=== PATIENT | female | born 1950 | race Caucasian/White ===

== ENCOUNTER → 2017-07-17 | Outpatient (CLI) | payer MEDICARE ==
--- NOTE | 2017-07-19 09:48 | MM ---
Reason for exam: screening (asymptomatic). Last mammogram was performed 1 year and 10 months ago. History: Patient is postmenopausal and is nulliparous. Family history of breast cancer in mother at age 89. Physical Findings: A clinical breast exam by your physician is recommended on an annual basis and results should be correlated with mammographic findings. MG Screening Mammo w CAD Bilateral CC and MLO view(s) were taken. Prior study comparison: September 29, 2015, bilateral MG screening mammo w CAD. September 02, 2014, bilateral MG screening mammo w CAD. The breast tissue is heterogeneously dense. This may lower the sensitivity of mammography. No significant changes when compared with prior studies. ASSESSMENT: Negative, BI-RAD 1 RECOMMENDATION: Routine screening mammogram of both breasts in 1 year.
== END | disposition home or self-care (01) ==
LOC: RADMAMWWP 09:38
PROVIDERS: ATTEND Family Medicine
DX: Z12.31 Encounter for screening mammogram for malignant neoplasm of breast (principal)

== ENCOUNTER → 2018-11-19 | Outpatient (CLI) | payer MEDICARE ==
--- NOTE | 2018-11-19 13:04 | MM ---
Reason for exam: screening (asymptomatic). Last mammogram was performed 1 year and 4 months ago. History: Patient is postmenopausal and is nulliparous. Family history of breast cancer in mother at age 89. Physical Findings: A clinical breast exam by your physician is recommended on an annual basis and results should be correlated with mammographic findings. MG Screening Mammo w CAD Bilateral CC and MLO view(s) were taken. Prior study comparison: July 17, 2017, bilateral MG screening mammo w CAD. September 29, 2015, bilateral MG screening mammo w CAD. The breast tissue is heterogeneously dense. This may lower the sensitivity of mammography. Stable benign calcifications. There is no discrete abnormality. No significant changes when compared with prior studies. ASSESSMENT: Benign, BI-RAD 2 RECOMMENDATION: Routine screening mammogram of both breasts in 1 year.
== END | disposition home or self-care (01) ==
LOC: RADMAMWWP 08:10
PROVIDERS: ATTEND Family Medicine
DX: Z12.31 Encounter for screening mammogram for malignant neoplasm of breast (principal)
CPT/HCPCS: 77067

== ENCOUNTER → 2022-02-08 | Outpatient (CLI) | payer MEDICARE ==
--- NOTE | 2022-02-09 08:48 | MM ---
Reason for Exam: Screening (asymptomatic). Last mammogram was performed 3 year(s) and 2 month(s) ago. Patient History: Menarche at age 14. Patient has no children. Postmenopausal. Mother had breast cancer, age 89. Risk Values: Shannan 5 year model risk: 3.4%. NCI Lifetime model risk: 9.7%. Film Views: Bilateral CC views were taken. Bilateral MLO views were taken. Prior Study Comparison: 09/29/2015 Bilateral Screening Mammogram, [facility]. 07/17/2017 Bilateral Screening Mammogram, [facility]. 11/19/2018 Bilateral Screening Mammogram, [facility]. Tissue Density: The breast tissue is heterogeneously dense. This may lower the sensitivity of mammography. Findings: Analyzed By CAD. Benign-appearing calcifications are noted. No dominant mass or architectural distortion. Question of faint grouped calcifications in the outer margin of the left breast. Recommend magnification views. Overall Assessment: Incomplete: need additional imaging evaluation, BI-RAD 0 Management: Special View Mammogram of both breasts. If lesion persists on supplemental views, image directed ultrasound is recommended. [facility] will attempt to contact patient to return for supplemental views and ultrasound if indicated. Left . A clinical breast exam by your physician is recommended on an annual basis and results should be correlated with mammographic findings. Electronically signed and approved by: Chavez Flores M.D. Radiologis
== END | disposition home or self-care (01) ==
LOC: RADMAMWWP 09:33
PROVIDERS: ATTEND Family Medicine
DX: Z12.31 Encounter for screening mammogram for malignant neoplasm of breast (principal); Z78.0 Asymptomatic menopausal state; Z80.3 Family history of malignant neoplasm of breast
CPT/HCPCS: 77067

== ENCOUNTER → 2022-02-11 | Outpatient (CLI) | payer MEDICARE ==
--- NOTE | 2022-02-11 14:09 | MM ---
Reason for Exam: Additional evaluation requested from abnormal screening. Last screening mammogram was performed less than 1 month ago. Patient History: Menarche at age 14. Patient has no children. Postmenopausal. Mother had breast cancer, age 89. Risk Values: Shannan 5 year model risk: 3.4%. NCI Lifetime model risk: 9.7%. Prior Study Comparison: 07/17/2017 Bilateral Screening Mammogram, [facility]. 11/19/2018 Bilateral Screening Mammogram, [facility]. 02/08/2022 Bilateral MG screening mammo w CAD, [facility]. Tissue Density: Left: The breast tissue is extremely dense which could obscure a lesion on mammography. Findings: Analyzed By CAD. No persistent density on compression views is evident. There are some faint calcifications within the left cranial caudal view not identified on the medial lateral views. This may be an interval change. Overall Assessment: Suspicious, BI-RAD 4 Management: Stereotactic Core Biopsy of the left breast. A clinical breast exam by your physician is recommended on an annual basis and results should be correlated with mammographic findings. This exam should not preclude additional follow-up of suspicious palpable abnormalities. Results were given to the patient verbally at the time of exam. Electronically signed and approved by: Yogesh Villegas D.O. Radiologis
== END | disposition home or self-care (01) ==
LOC: RADMAMWWP 13:30
PROVIDERS: ATTEND Family Medicine
DX: R92.1 Mammographic calcification found on diagnostic imaging of breast (principal); Z78.0 Asymptomatic menopausal state; Z80.3 Family history of malignant neoplasm of breast
CPT/HCPCS: 77065; G0279; 77061

== ENCOUNTER → 2022-02-25 | Outpatient (CLI) | payer MEDICARE ==
[2022-02-25 07:43] VITALS: BP 170/95; PULSE 89; RESP 17; TEMP 98.3
--- NOTE | 2022-02-25 08:42 | P.PCN ---
Date of Procedure: 02/25/22 Preoperative Diagnosis: Microcalcifications of concern left breast Postoperative Diagnosis: Same Procedure(s) Performed: Stereotactic core biopsy left breast Anesthesia: local Surgeon: Alicia Phillips Pathology: other (The specimen reveals microcalcifications of concern) Condition: stable Disposition: same day Indications for Procedure: Microcalcifications of concern left breast Operative Findings: Radiographic specimen reveals microcalcifications of concern Description of Procedure: The patient is a 71-year-old white female on a routine screening mammogram noted to have some faint calcifications in the left breast. These were seen only on the CC view. The radiograph was reviewed with Dr. Vivas and it was felt that an attempt at stereo biopsy should be performed. Risks and benefits of procedure were discussed with the patient. And she wished to proceed. The patient was taken to the stereotactic core biopsy wound. A CC from above approach was utilized. A records supervisor film was obtained. The area of concern was identified. The lesion was targeted. The breast was prepped using Betadine. 20 mL of 1% lidocaine were used to anesthetize the area of concern. A 9-gauge vacuum-assisted core rotating biopsy needle was driven to the correct coordinates. A prefire film was obtained and the needle was noted to be in the correct location. The needle was fired. A posterior film was obtained and the needle was noted to be in the correct location. 13 specimens were obtained. Radiograph of the specimen revealed the calcifications of concern to be present. A secure marked top at clip was placed. This was noted to be in the correct location. A 2 view mammogram will be done to confirm this. The patient tolerated the procedure in stable condition. The specimen was sent to pathology. The patient will follow-up with Dr. Aguilera next week. CC: Dr. Dasilva
== END ==
LOC: WWCWWP 07:37
PROVIDERS: ATTEND Surgery
DX: R92.0 Mammographic microcalcification found on diagnostic imaging of breast (principal); Z88.0 Allergy status to penicillin

== ENCOUNTER → 2022-02-25 | Day surgery (SDC) | payer MEDICARE ==
[2022-02-25 07:19] VITALS: RESP 16
--- NOTE | 2022-02-25 07:50 | P.GSHP ---
History of Present Illness H&P Date: 02/25/22 Chief Complaint: Left breast microcalcifications of concern Radha is a 71-year-old white female seen in consultation for Dr. Dasilva regarding the radiographic abnormality in the left breast. [place] [id number]. No lesions of concern were reported in the right breast. In the left breast was a question of some faint calcifications in the outer margin for which magnification views were recommended. This was performed on [id number]. The patient was noted to have some faint calcifications within the left craniocaudal view not identified in the medial lateral view. This was felt to be an interval change and stereotactic core biopsy was recommended. The patient does not feel any lumps masses or nodules of concern in either breast. This was a routine screening mammogram. She has never had any surgery on her breast in the past. She is not complaining of any nipple discharge or skin changes. She's not had any recent trauma or infection in the breast. caffeine: occasional nicotine: none chocolate: occasional hormones: none BCP none Family history: father: lung cancer smoker mother: breast cancer advanced Hormonal History: menarche: 13 G0 menopause: 49 hormones: none Surgical History: none Medical History: HTN hypothyroid Social History: nicotine: Negative Alcohol: Negative Drugs: Negative - Constitutional Constitutional: Denies chills, Denies fever - EENT Eyes: denies blurred vision, denies pain Ears: deny: decreased hearing, tinnitus Ears, nose, mouth and throat: Denies headache, Denies sore throat - Breasts Breasts: bilateral: as per HPI - Cardiovascular Comment: HTN Cardiovascular: Denies chest pain, Denies shortness of breath - Respiratory Respiratory: Denies cough, Denies 7 - Gastrointestinal Gastrointestinal: Denies abdominal pain, Denies diarrhea, Denies nausea, Denies vomiting - Genitourinary (Female) Genitourinary: Denies dysuria, Denies hematuria - Menstruation Menstruation: Reports postmenopausal - Musculoskeletal Musculoskeletal: Denies myalgias - Integumentary Integumentary: Denies pruritus, Denies rash - Neurological Neurological: Denies numbness, Denies weakness - Psychiatric Psychiatric: Denies anxiety, Denies depression - Endocrine Comment: hypothyroid Endocrine: Denies fatigue, Denies weight change - Hematologic/Lymphatic Comment: none - Allergic/Immunologic Allergic/Immunologic: Reports as per HPI Past Medical History Past Medical History: Hypertension, Thyroid Disorder History of Any Multi-Drug Resistant Organisms: None Reported Past Surgical History: No Surgical Hx Reported Past Anesthesia/Blood Transfusion Reactions: No Reported Reaction Past Psychological History: No Psychological Hx Reported Smoking Status: Never smoker Past Alcohol Use History: None Reported Past Drug Use History: None Reported Medications and Allergies Home Medications Medication Instructions Recorded Confirmed Type Aspirin [Gregory Aspirin EC] 81 mg PO DAILY 02/14/22 02/25/22 History Cholecalciferol [Vitamin D3 (125 125 mcg PO DAILY 02/14/22 02/25/22 History Mcg = 5000 Iu)] Levothyroxine Sodium [Synthroid] 75 mcg PO DAILY 02/14/22 02/25/22 History lisinopriL [Zestril] 5 mg PO DAILY 02/14/22 02/25/22 History Allergies Allergy/AdvReac Type Severity Reaction Status Date / Time Penicillins Allergy Rash/Hives Verified 02/25/22 07:13 Surgical - Exam Vital Signs Temp Pulse Resp BP 98.7 F 92 16 131/79 02/25/22 07:13 02/25/22 07:13 02/25/22 07:13 02/25/22 07:13 BMI: 32.8 - General no distress - Eyes normal ocular movement - Neck trachea midline - Respiratory normal respiratory effort, clear to auscultation - Cardiovascular Rhythm: regular Heart Sounds: normal: S1, S2 - Abdomen Abdomen: soft - Integumentary normal turgor - Neurologic no disoriented, no combative - Musculoskeletal normal gait - Psychiatric oriented to time, oriented to person, oriented to place, speech is normal, memory intact Breast Exam: BRA: 2X Inspection: bilateral grade 3 ptosis Palpation: Right Breast: Multiple positional exam fibrocystic changes no dominant masses or nodules of concern Right axilla: No adenopathy of concern Left breast: Multi-positional exam fibrocystic changes no dominant masses or nodules of concern Left axilla: No adenopathy of concern Fungal infection to both breasts greater underwent right breast Results Mammogram reviewed with Dr. Vivas; lesions seen only on CC view Assessment and Plan Assessment: Impression: Microcalcifications of concern left breast Fibrocystic breast changes Hypertension Hypothyroidism Plan: Attempted stereotactic core biopsy the lesion is faint and only seen on one view Risks and benefits of the procedure discussed with the patient. Risks include but are not limited to bleeding infection reaction to the anesthetic, the possibility that the lesion will not be able to be visualized we may have to do 6 month follow-up. The patient understands and wishes to proceed. Cc: Dr. Dasilva
[2022-02-25 08:51] VITALS: BP 140/77; PULSE 77; TEMP 98.2
--- NOTE | 2022-03-01 15:04 | MM ---
Addendum entered and electronically signed by Alicia Phillips MD 02/25/22 16:17: Review of the mammogram postprocedure reveals the clip to be in the correct location. Original Note: Date of Procedure: 02/25/22 Preoperative Diagnosis: Microcalcifications of concern left breast Postoperative Diagnosis: Same Procedure(s) Performed: Stereotactic core biopsy left breast Anesthesia: local Surgeon: Alicia Phillips Pathology: other (The specimen reveals microcalcifications of concern) Condition: stable Disposition: same day Indications for Procedure: Microcalcifications of concern left breast Operative Findings: Radiographic specimen reveals microcalcifications of concern Description of Procedure: The patient is a 71-year-old white female on a routine screening mammogram noted to have some faint calcifications in the left breast. These were seen only on the CC view. The radiograph was reviewed with Dr. Vivas and it was felt that an attempt at stereo biopsy should be performed. Risks and benefits of procedure were discussed with the patient. And she wished to proceed. The patient was taken to the stereotactic core biopsy wound. A CC from above approach was utilized. A faa certified powerplant mechanic film was obtained. The area of concern was identified. The lesion was targeted. The breast was prepped using Betadine. 20 mL of 1% lidocaine were used to anesthetize the area of concern. A 9-gauge vacuum-assisted core rotating biopsy needle was driven to the correct coordinates. A prefire film was obtained and the needle was noted to be in the correct location. The needle was fired. A posterior film was obtained and the needle was noted to be in the correct location. 13 specimens were obtained. Radiograph of the specimen revealed the calcifications of concern to be present. A secure marked top at clip was placed. This was noted to be in the correct location. A 2 view mammogram will be done to confirm this. The patient tolerated the procedure in stable condition. The specimen was sent to pathology. The patient will follow-up with Dr. Aguilera next week. CC: Dr. Vidya BRUSH
== END ==
LOC: RADMAMWWP 06:53
PROVIDERS: ATTEND Surgery
DX: N60.32 Fibrosclerosis of left breast (principal); N60.22 Fibroadenosis of left breast; N60.82 Other benign mammary dysplasias of left breast; R92.0 Mammographic microcalcification found on diagnostic imaging of breast; N62 Hypertrophy of breast; Z80.1 Family history of malignant neoplasm of trachea, bronchus and lung; Z80.3 Family history of malignant neoplasm of breast; I10 Essential (primary) hypertension; E03.9 Hypothyroidism, unspecified; Z79.82 Long term (current) use of aspirin; Z79.890 Hormone replacement therapy; Z79.899 Other long term (current) drug therapy; Z88.0 Allergy status to penicillin
CPT/HCPCS: 88305; 19081; A4648; J2001

== ENCOUNTER → 2022-03-04 | Outpatient (CLI) | payer MEDICARE ==
[2022-03-04 12:24] VITALS: BP 161/83; PULSE 101; RESP 17; TEMP 97.9
--- NOTE | 2022-03-04 12:39 | P.PN ---
Subjective Progress Note Date: 03/04/22 Principal diagnosis: fibrocystic breast changes Radha is a 71 year old female status post left breast stereotactic core biopsy performed on . Pathology was benign. The patient tolerated the procedure in stable condition. Pathology revealed sclerotic fibrosis with sclerosing adenosis, fibrocystic change with apocrine metaplasia and columnar cell change, focal microcalcification in usual ductal hyperplasia. Objective - Vital Signs Vital signs: Vital Signs Temp 97.9 F 03/04/22 12:22 Pulse 101 H 03/04/22 12:22 Resp 17 03/04/22 12:22 BP 161/83 03/04/22 12:22 Pulse Ox 97 03/04/22 12:22 FiO2 Intake & Output 03/03/22 03/04/22 03/04/22 18:59 06:59 18:59 Weight 89.358 kg - Constitutional General appearance: Present: cooperative - EENT ENT: Present: hearing grossly normal - Neck Neck: Present: normal ROM - Respiratory Respiratory: bilateral: CTA - Cardiovascular Heart sounds: normal: S1, S2 - Integumentary Integumentary Comment(s): Area of biopsy left breast clean and dry no Evidence of infection or hematoma Assessment and Plan Assessment: Impression: Patient status post stereotactic core biopsy left breast pathology benign Plan: Repeat left breast mammogram in 6 months with position exam at that time CC: Dr. Dasilva
== END ==
LOC: WWCWWP 11:54
PROVIDERS: ATTEND Surgery
DX: D24.2 Benign neoplasm of left breast (principal); Z88.0 Allergy status to penicillin

== ENCOUNTER → 2022-09-01 | Outpatient (CLI) | payer MEDICARE ==
--- NOTE | 2022-09-01 15:32 | MM ---
Reason for Exam: Follow-up at short interval from prior study. Last screening mammogram was performed 7 month(s) ago. Patient History: Menarche at age 14. Patient has no children. Postmenopausal. Previous Hyperplasia w/o Atypia at age 71. 02/25/2022, Benign MG stereo VAD BX LT on the left side. Mother had breast cancer, age 89. Risk Values: Shannan 5 year model risk: 4.0%. NCI Lifetime model risk: 10.9%. Prior Study Comparison: 11/19/2018 Bilateral Screening Mammogram, [facility]. 02/08/2022 Bilateral MG screening mammo w CAD, [facility]. 02/11/2022 Left MG 3D work up w/cad LT, [facility]. Tissue Density: Left: The breast tissue is heterogeneously dense. This may lower the sensitivity of mammography. Findings: Analyzed By CAD. New microclip upper outer quadrant anterior left breast from recent biopsy. Benign oil cyst and vascular calcifications are present. No significant change from prior exams. Overall Assessment: Benign, BI-RAD 2 Management: Screening Mammogram of both breasts in 6 months. 1. Patient should continue monthly self breast exams. 2. A clinical breast exam by your physician is recommended on an annual basis. 3. This exam should not preclude additional follow-up of suspicious palpable abnormalities. Results were given to the patient verbally at the time of exam. Electronically signed and approved by: Meaghan Jeffries M.D. Radiologist
== END | disposition home or self-care (01) ==
LOC: RADMAMWWP 12:56
PROVIDERS: ATTEND Surgery
DX: R92.8 Other abnormal and inconclusive findings on diagnostic imaging of breast (principal); Z78.0 Asymptomatic menopausal state; Z80.3 Family history of malignant neoplasm of breast
CPT/HCPCS: 77065; G0279; 77061

== ENCOUNTER → 2022-09-01 | Outpatient (CLI) | payer MEDICARE | LOC: WWCWWP 12:57 | PROVIDERS: ATTEND Surgery | DX: R92.8 Other abnormal and inconclusive findings on diagnostic imaging of breast (principal); Z78.0 Asymptomatic menopausal state; Z80.3 Family history of malignant neoplasm of breast; Z88.0 Allergy status to penicillin ==

== ENCOUNTER 2024-11-04 15:06 | Emergency (ER) | payer MEDICARE ==
[2024-11-04 15:11] VITALS: TEMP 97.4
--- NOTE | 2024-11-04 15:57 | XR ---
EXAMINATION TYPE: XR ankle complete LT DATE OF EXAM: 11/04/2024 3:36 PM COMPARISON: None. CLINICAL INDICATION: Female, 74 years old with history of fall ankle pain, pain TECHNIQUE: 3 view(s) obtained. FINDINGS: Mild diffuse soft tissue swelling is present. Ankle mortise is intact. No acute fracture or dislocati on is evident. Plantar calcaneal heel spur is present. Vascular calcification is present. Follow up exams can be performed 7-10 days from acute trauma for continued pain. IMPRESSION: 1. No acute osseous abnormality left ankle [facility] Shukri Sparrow, , 11/04/2024 3:55 PM
--- NOTE | 2024-11-04 16:51 | ED ---
Lower Extremity Injury HPI - General Chief Complaint: Extremity Injury, Lower Stated Complaint: fall, lt ankle pain Time Seen by Provider: 11/04/24 15:20 Source: patient, RN notes reviewed Mode of arrival: EMS Limitations: no limitations - History of Present Illness Initial Comments: This is a 74-year-old female presenting with left ankle injury at 1430 today. Patient states she was walking on an outdoor path when she suffered a trip and fall, supinating her left ankle. Denies striking head, head injury, headache, neck pain, dizziness, nausea/vomiting. Patient states she was unable to bear weight at the time of fall and is able to bear some weight now. Denies distal paresthesia or color change. Denies other injury. MD Complaint: ankle injury Onset/Timin -: hour(s) Time: 14:30 Injury: Ankle: Left - Related Data Home Medications Medication Instructions Recorded Confirmed Aspirin [Throop Aspirin EC] 81 mg PO DAILY 02/14/22 03/04/22 Cholecalciferol [Vitamin D3 (125 125 mcg PO DAILY 02/14/22 03/04/22 Mcg = 5000 Iu)] Levothyroxine Sodium [Synthroid] 75 mcg PO DAILY 02/14/22 03/04/22 lisinopriL [Zestril] 5 mg PO DAILY 02/14/22 03/04/22 Allergies Allergy/AdvReac Type Severity Reaction Status Date / Time Penicillins Allergy Rash/Hives Verified 03/04/22 12:20 Review of Systems ROS Statement: Those systems with pertinent positive or pertinent negative responses have been documented in the HPI. ROS Other: All systems not noted in ROS Statement are negative. Past Medical History Past Medical History: Hypertension, Thyroid Disorder History of Any Multi-Drug Resistant Organisms: None Reported Past Surgical History: No Surgical Hx Reported Past Anesthesia/Blood Transfusion Reactions: No Reported Reaction Past Psychological History: No Psychological Hx Reported Smoking Status: Never smoker Past Alcohol Use History: None Reported Past Drug Use History: None Reported General Exam Limitations: no limitations General appearance: alert, in no apparent distress Head exam: Present: atraumatic, normocephalic, normal inspection Eye exam: Present: normal appearance, PERRL, EOMI. Absent: scleral icterus, conjunctival injection, periorbital swelling ENT exam: Present: normal exam, mucous membranes moist Neck exam: Present: normal inspection. Absent: tenderness, meningismus, lymphadenopathy Respiratory exam: Present: normal lung sounds bilaterally. Absent: respiratory distress, wheezes, rales, rhonchi, stridor Cardiovascular Exam: Present: regular rate, normal rhythm, normal heart sounds. Absent: systolic murmur, diastolic murmur, rubs, gallop, clicks GI/Abdominal exam: Present: soft, normal bowel sounds. Absent: distended, tenderness, guarding, rebound, rigid Extremities exam: Present: full ROM, tenderness (Positive left lateral malleolus edema with tenderness. Negative crepitus, deformity, ecchymosis, open wound.), normal capillary refill, other (Negative left foot medial malleolus, navicular, fifth metatarsal tenderness, crepitus. Dorsalis pedis pulse +2. Neurovascular intact.). Absent: pedal edema, joint swelling, calf tenderness Back exam: Present: normal inspection Neurological exam: Present: alert, oriented X3, CN II-XII intact Psychiatric exam: Present: normal affect, normal mood Skin exam: Present: warm, dry, intact, normal color. Absent: rash Course Vital Signs 11/04/24 11/04/24 15:09 17:11 Temperature 97.4 F L Pulse Rate 100 101 H Respiratory 20 18 Rate Blood Pressure 177/80 171/87 O2 Sat by Pulse 98 96 Oximetry Medical Decision Making - Medical Decision Making Was pt. sent in by a medical professional or institution (Dr. PA, GENERATION ENGINEER, urgent care, hospital, or penitentiary...) When possible be specific @ -No Did you speak to anyone other than the patient for history (EMS, parent, family, police, friend...)? What history was obtained from this source @ -No Did you review nursing and triage notes (agree or disagree)? Why? @ -I reviewed and agree with nursing and triage notes Were old charts reviewed (outside hosp., previous admission, EMS record, old EKG, old radiological studies, urgent care reports/EKG's, penitentiary records)? Report findings @ -No old charts were reviewed Differential Diagnosis (chest pain, altered mental status, abdominal pain women, abdominal pain men, vaginal bleeding, weakness, fever, dyspnea, syncope, headache, dizziness, GI bleed, back pain, seizure, CVA, palpatations, mental health, musculoskeletal)? @ -Differential Musculoskeletal Muscular strain, contusion, ligament sprain, fracture, arthritis, septic arthritis, bursitis, cellulitis, muscle spasm, nerve compression, DVT, arterial occlusion, herpes zoster, electrolyte abnormality, tumor.... This is not meant to be in all inclusive list EKG interpreted by me (3pts min.). @ -Not done X-rays interpreted by me (1pt min.). @ -Left ankle x-ray shows no acute fracture or dislocation. CT interpreted by me (1pt min.). @ -None done U/S interpreted by me (1pt. min.). @ -None done What testing was considered but not performed or refused? (CT, X-rays, U/S, labs)? Why? @ -None What meds were considered but not given or refused? Why? @ -Patient declined Motrin, Toradol and ice Did you discuss the management of the patient with other professionals (professionals i.e. , PA, GENERATION ENGINEER, lab, RT, psych nurse, social organization professor, cobbler sole, teacher, ski patrol officer, nurse case management)? Give summary @ -No Was smoking cessation discussed for >3mins.? @ -No Was critical care preformed (if so, how long)? @ -No Were there social determinants of health that impacted care today? How? (Homelessness, low income, unemployed, alcoholism, drug addiction, transportation, low edu. Level, literacy, decrease access to med. care, retirement, rehab)? @ -No Was there de-escalation of care discussed even if they declined (Discuss DNR or withdrawal of care, Hospice)? DNR status @ -No What co-morbidities impacted this encounter? (DM, HTN, Smoking, COPD, CAD, Cancer, CVA, ARF, Chemo, Hep., AIDS, mental health diagnosis, sleep apnea, morbid obesity)? @ -None Was patient admitted / discharged? Hospital course, mention meds given and route, prescriptions, significant lab abnormalities, going to OR and other pertinent info. @ -Left ankle x-ray shows no acute fracture or dislocation. Plantar calcaneal heel spur noted. Patient declines Motrin, Toradol and cold compress. Advised RICE and alternate Tylenol/Motrin every 4 hours for pain. Advised follow-up with PCP/orthopedics for ongoing management of injury. Discussed patient with Dr. Bernard. Undiagnosed new problem with uncertain prognosis? @ -No Drug Therapy requiring intensive monitoring for toxicity (Heparin, Nitro, Insulin, Cardizem)? @ -No Were any procedures done? @ -No Diagnosis/symptom? @ -Lateral ankle sprain Acute, or Chronic, or Acute on Chronic? @ -Acute Uncomplicated (without systemic symptoms) or Complicated (systemic symptoms)? @ -Uncomplicated Side effects of treatment? @ -No Exacerbation, Progression, or Severe Exacerbation? @ -No Poses a threat to life or bodily function? How? (Chest pain, [place], [place], pneumonia, PE, COPD, DKA, ARF, appy, cholecystitis, CVA, Diverticulitis, Homicidal, Suicidal, threat to staff... and all critical care pts) @ -No Disposition Clinical Impression: Sprain of lateral ligament of ankle joint Disposition: HOME SELF-CARE Condition: Good Instructions (If sedation given, give patient instructions): Ankle Sprain (ED) Additional Instructions: Rest, ice, compression, elevation. Alternate Tylenol/Motrin every 4 hours for pain Is patient prescribed a controlled substance at d/c from ED?: No Referrals: None,Stated [REFERRING] - 1-2 days Roland Ramos DO [Doctor of Osteopathic Medicine] - 1-2 days Time of Disposition: 16:52
[2024-11-04 17:12] VITALS: BP 171/87; PULSE 101; RESP 18
== END 2024-11-04 17:12 | disposition home or self-care (01) ==
LOC: EC 15:06
DX: S93.492A Sprain of other ligament of left ankle, initial encounter (principal); Z88.0 Allergy status to penicillin; W01.0XXA Fall on same level from slipping, tripping and stumbling without subsequent striking against object, initial encounter; Y93.01 Activity, walking, marching and hiking
CPT/HCPCS: 99283